=== PATIENT | female | born 1950 | race Caucasian/White ===

== ENCOUNTER 2021-11-14 08:15 | Outpatient (CLI) | payer MEDICARE ==
[2021-11-14 20:19] LABS: SARS-CoV-2 PCR by NAA Not Detected (NotDetected)
== END 2021-11-14 08:16 | disposition home or self-care (01) ==
LOC: CSHLAB 08:15
PROVIDERS: ATTEND Physician Assistant Medical
DX: Z20.822 Contact with and (suspected) exposure to COVID-19 (principal); R13.10 Dysphagia, unspecified
CPT/HCPCS: U0003; U0005

== ENCOUNTER 2021-11-17 12:37 | Outpatient (CLI) | payer MEDICARE | END 2021-11-17 12:38 | disposition home or self-care (01) | LOC: CSHRAD 12:37 | PROVIDERS: ATTEND Physician Assistant Medical | DX: R13.10 Dysphagia, unspecified (principal); K22.2 Esophageal obstruction | CPT/HCPCS: 74220 ==

== ENCOUNTER 2022-10-02 19:29 | Emergency (ER) | payer OTHER, MEDICARE | END 2022-10-02 20:53 | disposition home or self-care (01) | LOC: CSHERS 19:29 | DX: S42.212A Unspecified displaced fracture of surgical neck of left humerus, initial encounter for closed fracture (principal); I10 Essential (primary) hypertension; W19.XXXA Unspecified fall, initial encounter ==

== ENCOUNTER 2024-06-12 19:15 | Inpatient (IN) | payer MEDICARE ==
[2024-06-12] MEDS ORDERED: Calcium Carbonate 500 MG ChewTAB PO PRN (21:03)
[2024-06-12] MEDS ORDERED: Senokot S 8.6-50 MG TAB PO PRN (21:03)
[2024-06-12] MEDS ORDERED: Ondansetron PF 4 MG/2 ML Vial IVP PRN (21:03)
[2024-06-12] MEDS ORDERED: Acetaminophen 650 MG Suppository PR PRN (21:03)
[2024-06-12 21:04] VITALS: BMI 20.6
[2024-06-12] MEDS: Lactated Ringer's 1,000 ML IV SCH (21:30)
[2024-06-13] MEDS: Amlodipine 5 MG TAB PO SCH ×2 (00:12→13:40)
[2024-06-13] MEDS: QUEtiapine 25 MG TAB PO SCH ×2 (00:12→13:46)
[2024-06-13] MEDS: Donepezil HCl 5 MG TAB PO SCH (00:12)
[2024-06-13 04:15] LABS: #Basophils 0.04 10x3/uL (0.0-0.2); #Eosinphils 0.23 10x3/uL (0.0-0.5); #Neutrophils 4.91 10x3/uL (1.5-8.4); %Basophils 0.6 % (0.0-2.0); %Eosinophils 3.3 % (0.0-6.0); %Lymphocytes 17.2 % (18.0-47.0); %Monocytes 8.5 % (0.0-10.0); %Neutrophils 69.8 % (40.0-75.0); Hemoglobin 9.6 g/dL (12.0-15.5); Mean Corpuscular Hemoglobin 27.7 pg (27.0-33.0); Mean Corpuscular Volume 86.5 fL (81.6-98.3); Mean Platelet Volume 9.4 fL (7.4-10.4); Platelet Count 213 10x3/uL (150-450); RBC Distribution Width 13.5 % (11.5-14.5); Red Blood Cell (RBC) Count 3.47 10x6/uL (3.90-5.03)
[2024-06-13 04:31] LABS: Anion Gap 15 mmol/L (10-20); BUN (Urea Nitrogen) 15 mg/dL (9.8-20.1); Calc. Creatinine Clearance 69 mL/min (70-130); Calcium 8.5 mg/dL (7.8-10.44); Carbon Dioxide 22 mmol/L (23-31); Chloride 108 mmol/L (98-107); Estimated GFR 93; Glucose 92 mg/dL (83-110); Magnesium 1.5 mg/dL (1.6-2.6); Potassium 3.6 mmol/L (3.5-5.1); Sodium 141 mmol/L (136-145)
[2024-06-13] MEDS: Magnesium 2 GM/50 ML(in water) 2 GM in Premix 1 BAG IVPB SCH (06:34)
[2024-06-13] MEDS: Guaifenesin DM 100-10/5 ML UDCUP PO PRN (08:00)
[2024-06-13] MEDS ORDERED: EPINEPHrine 1 MG/10 ML Abboject SYRINGE ONE (08:00)
[2024-06-13] MEDS ORDERED: Rocuronium Bromide 10 MG/ML (10ML VIAL) ONE (08:00)
[2024-06-13] MEDS ORDERED: Etomidate 40 MG (20 mL) VIAL ONE (08:00)
[2024-06-13] MEDS: Furosemide 40 MG (4 mL) VIAL SLOW IVP SCH (08:25)
[2024-06-13] MEDS ORDERED: Ipratropium/Albuterol 3 ML NEB NEB PRN (08:34)
[2024-06-13] MEDS: Ipratropium/Albuterol 3 ML NEB NEB SCH (08:45)
[2024-06-13] MEDS: Scopolamine 1 mg/72 hour Patch TOP SCH (09:02)
[2024-06-13] MEDS: Furosemide 40 MG (4 mL) VIAL ONE (09:04)
[2024-06-13] MEDS: Levothyroxine Sodium 88 MCG TAB PO SCH (10:01)
[2024-06-13] MEDS: Piperacillin/Tazobactam 3.375 GM in Sodium Chloride 0.9% 100 ML IVPB SCH (10:05)
[2024-06-13] MEDS ORDERED: D5W-AA 4.25% with LYTES 1,000 ML IV SCH (11:30)
[2024-06-13] MEDS: Potassium Chloride 20 MEQ TAB PO SCH (11:33)
[2024-06-13] MEDS: Acetylcysteine 800 MG/4 ML VIAL INH SCH (11:35)
[2024-06-13] MEDS: Glycopyrrolate 0.2 MG/ML 5 ML SYRINGE SLOW IVP SCH (11:38)
[2024-06-13] MEDS ORDERED: Piperacillin/Tazobactam 3.375 GM in Sodium Chloride 0.9% 100 ML IVPB SCH (13:00)
[2024-06-13] MEDS ORDERED: Hydrocortisone Sod Succ/PF 100 mg/2 ml Vial IVP SCH (13:00)
[2024-06-13] MEDS ORDERED: VANCOMYCIN 1.25 GM/250 ML BAG 1.25 GM in Premix 1 BAG IVPB SCH (13:00)
[2024-06-13] MEDS: Famotidine 20 MG TAB PO SCH (13:41)
[2024-06-13] MEDS: guaiFENesin ER 600 MG TAB PO SCH (13:41)
[2024-06-13] MEDS: Enoxaparin 40 MG (0.4 mL) SYRINGE SC SCH (13:41)
[2024-06-13] MEDS: Memantine 5 MG TAB PO SCH (13:42)
[2024-06-13] MEDS: Sertraline 25 MG TAB PO SCH (13:49)
[2024-06-13] MEDS ORDERED: Ipratropium/Albuterol 3 ML NEB NEB SCH (14:30)
[2024-06-13 14:33] VITALS: BP 96/53; TEMP 101.9
[2024-06-13] MEDS ORDERED: Donepezil HCl 5 MG TAB PO SCH (21:00)
[2024-06-13] MEDS ORDERED: Vancomycin 1 GM in Premix 1 BAG IVPB SCH (21:00)
[2024-06-13] MEDS ORDERED: Acetylcysteine 800 MG/4 ML VIAL INH SCH (23:00)
[2024-06-15 08:17] LABS: ALV-art Gradient 192.025 mmHg (0-20); Actual Bicarbonate (HCO3a) 22.8 mEq/L (22-28); Analyzer IN Cardio CS ICU; Base Excess (BEa) -0.3 mEq/L (-2.0 to +3.0); CO2 Tension 32.7 mmHg (35.0-45.0); Calcium, Ionized (arterial) 1.13 mmol/L (1.12-1.30); Carboxyhemoglobin (COHb) 0.2 gm% (0.0-3.0); Hematocrit-ABG 36 % (36.0-47.0); Hemoglobin (Hb) 12.1 g/dL (12.0-16.0); O2 Tension (PaO2), arterial 52.3 mmHg (> 70.0); Puncture Site Right Brachial art; pH, Arterial 7.462 (7.35-7.45)
[2024-06-16] MEDS ORDERED: [UNRECOGNIZED DRUG - REMARK] TOP SCH (08:40)
== END 2024-06-13 11:18 | disposition still patient (30) | DRG 179 ==
LOC: CSHTELE 20:38 → OBSVTOIN 06-13 08:33
PROVIDERS: ADMIT Family Medicine; ATTEND Family Medicine
PROC: 4A133R1 Monitoring of Arterial Saturation, Peripheral, Percutaneous Approach (ICD-10-PCS; principal; 2024-06-13)
DX: J69.0 Pneumonitis due to inhalation of food and vomit (principal); G30.9 Alzheimer's disease, unspecified; F02.80 Dementia in other diseases classified elsewhere, unspecified severity, without behavioral disturbance, psychotic disturbance, mood disturbance, and anxiety; I10 Essential (primary) hypertension; E78.5 Hyperlipidemia, unspecified; E03.9 Hypothyroidism, unspecified; Z96.642 Presence of left artificial hip joint; R53.1 Weakness; D72.829 Elevated white blood cell count, unspecified; R13.10 Dysphagia, unspecified; Z88.2 Allergy status to sulfonamides; Z79.899 Other long term (current) drug therapy; Z79.890 Hormone replacement therapy
CPT/HCPCS: 36415; 36600; 71045; 71250; 80048; 82805; 83735; 83880; 84443; 85025; 87040; 87070; 87205; 89220; 94640; 94760; 96374; 96375; G0378; J0171; J1940; J2543; J3475; J7120; J7620